=== PATIENT | female | born 1950 | race Caucasian/White ===

== ENCOUNTER → 2018-04-16 | Outpatient (CLI) | payer BC ==
[~2018-04-16] MED LIST: BONIVA150 MG PO; LISINOPRIL10 MG PO; SIMVASTATIN20 MG PO
--- NOTE | 2018-04-16 16:42 | Diagnostic Imaging Report ---
Exam: Lumbar spine complete History: Low back pain Comparison: None. Findings: There are 5 nonrib-bearing lumbar-type vertebral bodies. No acute, displaced fracture or subluxation. Soft tissue, ligamentous, and spinal cord abnormalities cannot be excluded on the basis of plain radiography. No pars interarticularis defects are identified on the oblique radiographs. There is advanced multilevel disc space narrowing, marginal osteophytosis, and endplate sclerosis most notably affecting L1-L2 and L5-S1. Bilateral facet arthropathy at L5-S1 is also noted. Sacroiliac joints are well-maintained. Impression: No acute osseous abnormality. Multilevel degenerative disc disease and facet arthropathy disproportionately effecting L1-L2 and L5-S1. Signed by: Dr. Faheem Dewey M.D. on 04/16/2018 4:39 PM
--- NOTE | 2018-04-16 16:47 | Diagnostic Imaging Report ---
Exam: Cervical spine, complete History: Neck pain Comparison: MRI cervical spine 07/28/2016 Findings: Cervical spine is visualized from the skull base to the bottom of T1 on the lateral radiograph. No acute, displaced fracture or subluxation. Soft tissue, ligamentous, and spinal cord abnormalities cannot be excluded on the basis of plain radiography. There is advanced disc space narrowing, marginal disc osteophyte complexes, and endplate sclerosis a affecting C5-C6 and C6-C7 with reversal of the normal cervical lordosis, grossly unchanged relative to prior MRI. Right-sided foraminal narrowing at C3-4 and left-sided foraminal narrowing at C3-4 is noted on the oblique radiographs. Prevertebral soft tissues are of normal thickness. Mild degenerative changes at the atlantoaxial interval. Impression: No acute osseous abnormality. Soft tissue, ligamentous, and spinal cord abnormalities cannot be excluded on the basis of plain radiography. Degenerative disc disease and degenerative uncovertebral arthrosis at multiple levels of the cervical spine as described above. Findings appear similar to that described on comparison MRI 07/28/2016. Signed by: Dr. Faheem Dewey M.D. on 04/16/2018 4:43 PM
== END ==
LOC: RAD 15:39
DX: M54.2 Cervicalgia (principal); M54.5 Low back pain
CPT/HCPCS: 72050; 72110

== ENCOUNTER → 2018-05-14 | Outpatient (CLI) | payer BC ==
--- NOTE | 2018-05-14 15:30 | Diagnostic Imaging Report ---
EXAMINATION: Head CT HISTORY: Headache for the last 3 months COMPARISON: None available TECHNIQUE: Multidetector axial images were obtained without contrast from the foramen magnum to the vertex . The images were reconstructed using brain and bone algorithms. Thin section brain images were reformatted into coronal and sagittal planes. Intravenous contrast: None. Image quality: Motion/streaking artifact limits the evaluation of the skull base and posterior cranial fossa. Dose modulation, iterative reconstruction, and/or weight based adjustment of the mA/kV was utilized to reduce the radiation dose to as low as reasonably achievable. FINDINGS: Parenchyma: 1. Scattered and moderate confluence within the right matter hypodensities, most likely nonspecific chronic microvascular ischemic changes. 2. No mass or hemorrhage. No CT evidence of acute territorial vascular insult. Extra-axial spaces:No abnormal density. No extra-axial fluid collections Brain volume: Normal for age. Ventricles: No hydrocephalus or displacement. Arteries: No density suggestive of thrombus. Dural sinuses: No abnormal density. Extra-axial spaces: No abnormal density. Foramen magnum: No mass, Chiari malformation, or basilar invagination. Sella: No obvious mass. Paranasal/mastoid sinuses: Imaged portions unremarkable. Skull/Scalp: No lytic or blastic lesions. No fractures. IMPRESSION: Moderate chronic microvascular ischemic changes. Otherwise no intracranial abnormalities. Signed by: Dr. Suzy Chaves M.D. on 05/14/2018 3:27 PM
== END ==
LOC: CT 14:19
DX: R51 Headache (principal)
CPT/HCPCS: 70450

== ENCOUNTER → 2019-05-16 | Day surgery (SDC) | payer BC ==
[2019-05-09 13:02] LABS: BASOPHILS # (AUTO) 0.1 (0.0-0.1); BASOPHILS % 1.1 % (0.0-1.0); EOSINOPHILS # (AUTO) 0.3 (0.0-0.4); HEMATOCRIT 36.4 % (34.2-44.1); HEMOGLOBIN 11.3 g/dL (12.0-16.0); LYMPHOCYTES # (AUTO) 2.9 (1.0-3.2); LYMPHOCYTES % 47.2 % (18.0-39.1); MEAN CORPUSCULAR VOLUME 93.3 fL (81-99); MONOCYTES # (AUTO) 0.6 (0.2-0.8); MONOCYTES % 9.4 % (4.4-11.3); NEUTROPHILS # (AUTO) 2.3 (2.1-6.9); NEUTROPHILS % 37.1 % (38.7-80.0); PLATELET COUNT 231 x10e3/uL (140-360); RED CELL DISTRIBUTION WIDTH 12.5 % (11.7-14.4)
[~2019-05-16] MED LIST changes: +BIOTIN1 MG PO; +CALCIUM PO; +CBD TOP; +FENTANYL CITRATE/PF 100MCG/2 ML INJ ONE; +GLUCAGON FOR INJ 1 MG VIAL ONE; +HYOSCYAMINE 0.125 MG TAB ONE; +METHIMAZOLE5 MG PO; +MIDAZOLAM HCL 2 MG/2 ML VIAL ONE; +MULTI-VITAMIN1 EACH PO; +PROPOFOL IV EMULSION 10 MG/ML 50 ML VIAL ONE; +SM NATURAL BAL100 MG PO; +VIT C PO; +VIT D PO
--- OUTSIDE RECORDS SUMMARY | 2019-05-16 07:44 | XMS REPORT ---
Author Author [facility] Address Unknown Phone Unavailable Care Team Providers Care Grader Meat Name Role Phone CHRIS CORONA Unavailable Unavailable Problems This patient has no known problems. Allergies, Adverse Reactions, Alerts This patient has no known allergies or adverse reactions. Medications This patient has no known medications. Results Test Description Test Time Test Comments Text Results Atomic Results Result Comments SCR MAMM BILATERAL SABINA CAD DIGITAL 2019-03-28 13:05:31 - SCR MAMM BILATERAL SABINA CAD DIGITALBILATERAL DIGITAL SCREENING MAMMOGRAM 3D/2D WITH CAD: 03/28/2019CLINICAL: Asymptomatic. Digital breast tomosynthesis was performed in addition to routine CC and MLO views. Current mammographic images were evaluated by either a [employer] M-Vu or a [employer] ImageChecker CAD (computer aided detection system). Comparison is made to exams dated 12/18/2017 mammogram, 10/20 mammogram, and 09/23/2015 mammogram - [facility]. There are scattered fibroglandular tissues in both breasts. There are benign calcifications in both breasts. No suspicious mass, architectural distortion, malignant type calcification, or lymph node abnormality detected. Breast architecture is stable compared to prior exams.IMPRESSION: BENIGNThere is no mammographic evidence of malignancy. Resume annual screening mammography in one year. Fatmata castellanos/seun:03/28/2019 13:05:31 Automatic Bow Maker Machine Tender: Racquel OLIVAREZ, [facility] sent: BIRADS 1-2 Normal Mammogram BI-RADS: [address] BRAIN WO 2018-05-14 15:25:[address] [address] Patient Name: MELIDA TORRES MR #: [id number] : 1950 Age/Sex: 68/F Req #: [id number] [facility] Physician: Ordered by: CHRIS CORONA MD Report #: [id number] Location: CT Room/Bed: Procedure: [id number] CT/CT BRAIN WO Exam Date: 05/14/18 Exam Time: 1510 REPORT STATUS: Signed EXAMINATION: Head CT HISTORY: Headache for the last 3 months COMPARISON: None available TECHNIQUE: Multidetector axial images were obtained without contrast from the foramen magnum to the vertex . The images were reconstructed using brain and bone algorithms. Thin section brain images were reformatted into coronal and sagittal planes. Intravenous contrast: None. Image quality: Motion/streaking artifact limits the evaluation of the skull base and posterior cranial fossa. Dose modulation, iterative reconstruction, and/or weight based adjustment of the mA/kV was utilized to reduce the radiation dose to as low as reasonably achievable. FINDINGS: Parenchyma: 1. Scattered and moderate confluence within the right matter hypodensities, most likely nonspecific chronic microvascular ischemic changes. 2. No mass or hemorrhage. No CT evidence of acute territorial vascular insult. Extra-axial spaces:No abnormal density. No extra-axial fluid collections Brain volume: Normal for age. Ventricles: No hydrocephalus or displacement. Arteries: No density suggestive of thrombus. Dural sinuses: No abnormal density. Extra-axial spaces: No abnormal density. Foramen magnum: No mass, Chiari malformation, or basilar invagination. Sella: No obvious mass. Paranasal/mastoid sinuses: Imaged portions unremarkable. Skull/Scalp: No lytic or blastic lesions. No fractures. IMPRESSION: Moderate chronic microvascular ischemic changes. Otherwise no intracranial abnormalities. Signed by: Dr. Suzy Chaves M.D. on 05/14/2018 3:27 PM Dictated By: SUZY CHAVES MD 1527 Transcribed By: PRIMITIVO on 05/14/18 1527 COPY TO: CHRIS CORONA MD CERVICAL SPINE 4 OR 5 VIEWS 2018-04-16 16:39:00 [place] [id number] [place] [id number] Patient Name: MELIDA TORRES MR #: [id number] : 1950 Age/Sex: 68/F Req #: [id number] Adm Physician: Ordered by: CHRIS CORONA MD Report #: [id number] Location: [facility] Room/Bed: Procedure: [id number] DX/CERVICAL SPINE 4 OR 5 VIEWS Exam Date: 04/16/18 Exam Time: 1600 REPORT STATUS: Signed Exam: Cervical spine, complete History: Neck pain Comparison: MRI cervical spine 07/28/2016 Findings: Cervical spine is visualized from the skull base to the bottom of T1 on the lateral radiograph. No acute, displaced fracture or subluxation. Soft tissue, ligamentous, and spinal cord abnormalities cannot be excluded on the basis of plain radiography. There is advanced disc space narrowing, marginal disc osteophyte complexes, and endplate sclerosis a affecting C5-C6 and C6-C7 with reversal of the normal cervical lordosis, grossly unchanged relative to prior MRI. Right-sided foraminal narrowing at C3-4 and left-sided foraminal narrowing at C3-4 is noted on the oblique radiographs. Prevertebral soft tissues are of normal thickness. Mild degenerative changes at the atlantoaxial interval. Impression: No acute osseous abnormality. Soft tissue, ligamentous, and spinal cord abnormalities cannot be excluded on the basis of plain radiography. Degenerative disc disease and degenerative uncovertebral arthrosis at multiple levels of the cervical spine as described above. Findings appear similar to that described on comparison MRI 07/28/2016. Signed by: Dr. Madison Hahn M.D. on 04/16/2018 4:43 PM Dictated By: MADISON HAHN MD 42 Transcribed By: PRIMITIVO on 04/16/181642 COPY TO: CHRIS CORONA MD SP LUMBAR, COMPLETE MIN 4VW 2018-04-16 16:36:00 [place] [address] Patient Name: MELIDA TORRES MR #: [id number] : 1950 Age/Sex: 68/F Req #: [id number] [facility] Physician: Ordered by: CHRIS CORONA MD Report #: [id number] Location: [facility] Room/Bed: Procedure: [id number] DX/SP LUMBAR, COMPLETE MIN 4VW Exam Date: 04/16/18 Exam Time: 1600 REPORT STATUS: Signed Exam: Lumbar spine complete History: Low back pain Comparison: None. Findings: There are 5 nonrib-bearing lumbar-type vertebral bodies. No acute, displaced fracture or subluxation. Soft tissue, ligamentous, and spinal cord abnormalities cannot be excluded on the basis of plain radiography. No pars interarticularis defects are identified on the oblique radiographs. There is advanced multilevel disc space narrowing, marginal osteophytosis, and endplate sclerosis most notably affecting L1-L2 and L5-S1. Bilateral facet arthropathy at L5-S1 is also noted. Sacroiliac joints are well-maintained. Impression: No acute osseous abnormality. Multilevel degenerative disc disease and facet arthropathy disproportionately effecting L1-L2 and L5-S1. Signed by: Dr. Madison Hahn M.D. on 04/16/2018 4:39 PM Dictated By: MADISON HAHN MD 163 Transcribed By: PRIMITIVO on 04/16/18 163 COPY TO: CHRIS CORONA MD CHEST 2 VIEWS [place] [address] Patient Name: MELIDA TORRES MR #: [id number] : 1950 Age/Sex: 66/F Req #: [id number] Adm Physician: Ordered by: CHRIS CORONA MD Report #: [id number] Location: [facility] Room/Bed: Procedure: [id number] DX/CHEST 2 VIEWS Exam Date: 03/23/17 Exam Time: 1610 REPORT STATUS: Signed PROCEDURE: Frontal and lateral views of the chest. COMPARISON: None. INDICATIONS: PRE OPERATIVE CHEST XRAY FOR HYSTERECTOMY FINDINGS: Lines/tubes: None. Lungs: The lungs are well inflated and clear. There is no evidence of pneumonia or pulmonary edema. Pleura: There is no pleural effusion or pneumothorax. Heart and mediastinum: Heart size is normal. Mild atherosclerotic calcification of the thoracic aorta. Bones: No acute bony abnormality. Severe disc space narrowing at what appears to be the L1-L2 level. IMPRESSION: 1. No acute cardiopulmonary disease. Dictated by: Janeth Figueroa M.D. on 03/23/2017 at 17:41 Electronically approved by: Janeth Figueroa M.D. on 03/23/2017 at 17:41 Dictated By: JANETH FIGUEROA MD 1741 Transcribed By: SHAWN on 03/23/17 3731 COPY TO: CHRIS CORONA MD
[2019-05-16 11:15] VITALS: BP 129/68
--- NOTE | 2019-05-16 17:42 | Operative Report ---
DATE OF PROCEDURE: 05/16/2019 SURGEON: Herb Gautam MD PROCEDURE: Colonoscopy with biopsies. INDICATION FOR COLONOSCOPY: Surveillance colonoscopy, personal history of colon polyps, fecal urgency. MEDICATIONS: The patient was done under MAC, please see anesthesiologist's note. PROCEDURE IN DETAIL: With the patient in left lateral decubitus position, a flexible fiberoptic Olympus colonoscope was inserted into the rectum with ease and advanced all the way to the cecum. It was then withdrawn slowly. Mucosa overlying the cecum, ascending colon and transverse colon appeared to be within normal limits. Large amount of retained stool was noted in the descending colon. The mucosa overlying the sigmoid and the rectum revealed some patchy mild inflammatory changes and biopsies were obtained. A single diverticulum was noted in the sigmoid colon. The scope was then retroflexed into the distal rectum and the area around the dentate line appeared to be within normal limits. The scope was then straightened out, it was subsequently withdrawn. The patient tolerated the procedure well. IMPRESSION: 1. Suboptimal prep, primarily descending colon. 2. Diverticulosis, minimal sigmoid colon. 3. Proctosigmoiditis, mild, biopsies obtained. PLAN: Follow up histology. Initiate VSL#3 p.o. b.i.d. and Bentyl 20 mg one p.o. t.i.d. The patient will need a repeat colonoscopy after a better prep. Herb Gautam [place] [facility] [place][id number] cc: Kenneth Gautam MD
== END | disposition home or self-care (01) ==
LOC: OR 07:42
PROVIDERS: ATTEND Internal Medicine Gastroenterology
DX: Z09 Encounter for follow-up examination after completed treatment for conditions other than malignant neoplasm (principal); Z86.010 Personal history of colon polyps; K57.30 Diverticulosis of large intestine without perforation or abscess without bleeding; K63.89 Other specified diseases of intestine; K59.00 Constipation, unspecified; I10 Essential (primary) hypertension; E03.9 Hypothyroidism, unspecified; Z01.810 Encounter for preprocedural cardiovascular examination; Z01.812 Encounter for preprocedural laboratory examination
CPT/HCPCS: 36415; 45380; 85025; 93005; J1610; J2250; J2704; J3010; 45378

== ENCOUNTER → 2021-01-21 | Day surgery (SDC) | payer BC ==
[2021-01-14 13:02] LABS: BASOPHILS # (AUTO) 0.1 (0.0-0.1); BASOPHILS % 1.5 % (0.0-1.0); EOSINOPHILS # (AUTO) 0.2 (0.0-0.4); EOSINOPHILS % 3.6 % (0.0-6.0); HEMATOCRIT 37.4 % (34.2-44.1); HEMOGLOBIN 11.7 g/dL (12.0-16.0); LYMPHOCYTES # (AUTO) 2.7 (1.0-3.2); LYMPHOCYTES % 43.3 % (18.0-39.1); MEAN CORPUSCULAR HEMOGLOBIN 28.8 pg (28-32); MEAN CORPUSCULAR HGB CONC 31.3 g/dL (31-35); MEAN CORPUSCULAR VOLUME 92.1 fL (81-99); MONOCYTES # (AUTO) 0.5 (0.2-0.8); MONOCYTES % 7.6 % (4.4-11.3); NEUTROPHILS # (AUTO) 2.7 (2.1-6.9); NEUTROPHILS % 43.8 % (38.7-80.0); PLATELET COUNT 222 x10e3/uL (140-360); RED BLOOD COUNT 4.06 x10e6/uL (3.6-5.1); RED CELL DISTRIBUTION WIDTH 12.1 % (11.7-14.4)
[~2021-01-21] MED LIST changes: +CELEBREX200 MG PO; -GLUCAGON FOR INJ 1 MG VIAL ONE; -HYOSCYAMINE 0.125 MG TAB ONE; +LIDOCAINE HCL 2% LOCAL INJ 5 ML SDV VIAL INJ ONE; +METOCLOPRAMIDE HCL 10 MG/2ML VIAL ONE; +PROPOFOL IV EMULSION 10 MG/ML 20 ML VIAL ONE; -PROPOFOL IV EMULSION 10 MG/ML 50 ML VIAL ONE
[2021-01-21 12:05] VITALS: BP 99/53
[2021-01-21 12:36] LABS: WBC,FECAL (FECAL LACTOFERRIN) NEGATIVE (NEGATIVE)
[2021-01-21 12:37] LABS: ALBUMIN 3.5 g/dL (3.5-5.0); ALBUMIN/GLOBULIN RATIO 1.3 (0.8-2.0); ANION GAP 11.1 mmol/L (8-16); CALCIUM 8.5 mg/dL (8.4-10.2); CREATININE, SERUM 0.93 mg/dL (0.57-1.11); POTASSIUM 4.1 mmol/L (3.5-5.1)
[2021-01-21 15:31] LABS: C DIFFICILE TOXIN A&B AMP PROB NEGATIVE (NEGATIVE)
== END | disposition home or self-care (01) ==
LOC: OR 07:15
PROVIDERS: ATTEND Internal Medicine Gastroenterology
DX: K29.70 Gastritis, unspecified, without bleeding (principal); D12.2 Benign neoplasm of ascending colon; D12.3 Benign neoplasm of transverse colon; K29.80 Duodenitis without bleeding; K20.90 Esophagitis, unspecified without bleeding; K31.89 Other diseases of stomach and duodenum; K21.9 Gastro-esophageal reflux disease without esophagitis; K57.30 Diverticulosis of large intestine without perforation or abscess without bleeding; K63.89 Other specified diseases of intestine; K64.8 Other hemorrhoids; I10 Essential (primary) hypertension; E03.9 Hypothyroidism, unspecified; F41.9 Anxiety disorder, unspecified; Z01.810 Encounter for preprocedural cardiovascular examination; Z01.812 Encounter for preprocedural laboratory examination; Z68.26 Body mass index [BMI] 26.0-26.9, adult
CPT/HCPCS: 36415 ×2; 43239; 45380; 80053; 83630; 83993; 85025; 87045; 87177; 87328; 87493; 93005; C9113; J2001; J2250; J2704; J2765; J3010

== ENCOUNTER → 2021-02-01 | Outpatient (CLI) | payer BC ==
[~2021-02-01] MED LIST changes: -FENTANYL CITRATE/PF 100MCG/2 ML INJ ONE; -LIDOCAINE HCL 2% LOCAL INJ 5 ML SDV VIAL INJ ONE; -METOCLOPRAMIDE HCL 10 MG/2ML VIAL ONE; -MIDAZOLAM HCL 2 MG/2 ML VIAL ONE; -PROPOFOL IV EMULSION 10 MG/ML 20 ML VIAL ONE
== END ==
LOC: US 09:00
PROVIDERS: ATTEND Internal Medicine Gastroenterology
DX: I85.00 Esophageal varices without bleeding (principal)
CPT/HCPCS: 76705

== ENCOUNTER → 2021-07-16 | Outpatient (CLI) | payer BC ==
[~2021-07-16] MED LIST changes: +IOPAMIDOL 370 MG/ML 200 ML INFUS..BTL INJ ONE; +SODIUM CHLORIDE 0.9% 50ML 50 ML ONE
[2021-07-16 09:12] LABS: CREATININE, SERUM 0.76 mg/dL (0.57-1.11)
== END ==
LOC: CT 07:40
PROVIDERS: ATTEND Internal Medicine Gastroenterology
DX: R10.84 Generalized abdominal pain (principal)
CPT/HCPCS: 36415; 74177; 82565; 84520; Q9967

== ENCOUNTER → 2021-08-25 | Day surgery (SDC) | payer BC ==
[2021-08-23 10:14] VITALS: BP 122/55
[2021-08-24 10:30] LABS: BASOPHILS # (AUTO) 0.1 (0.0-0.1); BASOPHILS % 1.1 % (0.0-1.0); EOSINOPHILS # (AUTO) 0.4 (0.0-0.4); EOSINOPHILS % 5.7 % (0.0-6.0); HEMATOCRIT 38.2 % (34.2-44.1); HEMOGLOBIN 11.7 g/dL (12.0-16.0); LYMPHOCYTES # (AUTO) 2.3 (1.0-3.2); LYMPHOCYTES % 37.8 % (18.0-39.1); MEAN CORPUSCULAR HEMOGLOBIN 29.2 pg (28-32); MEAN CORPUSCULAR HGB CONC 30.6 g/dL (31-35); MEAN CORPUSCULAR VOLUME 95.3 fL (81-99); MONOCYTES # (AUTO) 0.6 (0.2-0.8); MONOCYTES % 9.8 % (4.4-11.3); NEUTROPHILS # (AUTO) 2.8 (2.1-6.9); NEUTROPHILS % 45.4 % (38.7-80.0); PLATELET COUNT 231 x10e3/uL (140-360); RED BLOOD COUNT 4.01 x10e6/uL (3.6-5.1); RED CELL DISTRIBUTION WIDTH 12.1 % (11.7-14.4)
[2021-08-24 10:44] LABS: INR 0.9; PROTHROMBIN TIME 12.8 seconds (11.9-14.5)
[2021-08-24 10:45] LABS: PARTIAL THROMBOPLASTIN TIME 27.4 seconds (23.8-35.5)
[2021-08-24 10:57] LABS: ALBUMIN 3.7 g/dL (3.5-5.0); ALBUMIN/GLOBULIN RATIO 1.1 (0.8-2.0); ANION GAP 12.6 mmol/L (8-16); CALCIUM 9.4 mg/dL (8.4-10.2); CREATININE, SERUM 0.7 mg/dL (0.57-1.11); POTASSIUM 4.6 mmol/L (3.5-5.1)
[~2021-08-25] VITALS: Ht 160 cm; Wt 66.2 kg
[2021-08-25] VITALS (7 sets, daily range): BP systolic 101–122; BP diastolic 51–69
[~2021-08-25] MED LIST changes: +ASPIRIN 325 MG TAB ONE; +FENTANYL CITRATE/PF 100MCG/2 ML INJ ONE; +HEPARIN SOD/SOD CHLORIDE 2,000 ML ONE; +LIDOCAINE HCL 2% LOCAL 20 ML VIAL ONE; +MIDAZOLAM HCL 2 MG/2 ML VIAL ONE; +PANTOPRAZOLE SO40 MG PO; +SODIUM CHLORIDE 0.9% 1000ML 1,000 ML ONE; -SODIUM CHLORIDE 0.9% 50ML 50 ML ONE; +VERAPAMIL HCL 2.5 MG/ML 2 ML VIAL ONE
== END | disposition home or self-care (01) ==
LOC: CATH LAB 07:44
PROVIDERS: ATTEND Internal Medicine Cardiovascular Disease
DX: I25.10 Atherosclerotic heart disease of native coronary artery without angina pectoris (principal); R94.39 Abnormal result of other cardiovascular function study; R00.2 Palpitations; I87.2 Venous insufficiency (chronic) (peripheral); I10 Essential (primary) hypertension; E78.5 Hyperlipidemia, unspecified; R01.1 Cardiac murmur, unspecified; R93.1 Abnormal findings on diagnostic imaging of heart and coronary circulation; Z11.52 Encounter for screening for COVID-19; Z79.899 Other long term (current) drug therapy; Z82.49 Family history of ischemic heart disease and other diseases of the circulatory system
CPT/HCPCS: 36415; 80053; 85025; 85610; 85730; 93458; 93571; C1769 ×2; C1887; J2001; J2250; J3010; J7030; Q9967; U0002; 99152

== ENCOUNTER → 2021-11-22 | Outpatient (CLI) | payer BC ==
[~2021-11-22] MED LIST changes: -ASPIRIN 325 MG TAB ONE; -FENTANYL CITRATE/PF 100MCG/2 ML INJ ONE; -HEPARIN SOD/SOD CHLORIDE 2,000 ML ONE; -IOPAMIDOL 370 MG/ML 200 ML INFUS..BTL INJ ONE; -LIDOCAINE HCL 2% LOCAL 20 ML VIAL ONE; -MIDAZOLAM HCL 2 MG/2 ML VIAL ONE; -SODIUM CHLORIDE 0.9% 1000ML 1,000 ML ONE; -VERAPAMIL HCL 2.5 MG/ML 2 ML VIAL ONE
== END ==
LOC: NM 08:50
PROVIDERS: ATTEND Internal Medicine Gastroenterology
DX: R10.9 Unspecified abdominal pain (principal); K76.0 Fatty (change of) liver, not elsewhere classified; R14.2 Eructation
CPT/HCPCS: 78227; A9537

== ENCOUNTER → 2024-05-13 | Day surgery (SDC) | payer BC ==
[2024-04-29 12:48] LABS: BASOPHILS # (AUTO) 0.1 (0.0-0.1); EOSINOPHILS # (AUTO) 0.3 (0.0-0.4); EOSINOPHILS % 4.5 % (0.0-6.0); HEMATOCRIT 38.2 % (34.2-44.1); HEMOGLOBIN 11.8 g/dL (12.0-16.0); LYMPHOCYTES # (AUTO) 2.6 (1.0-3.2); LYMPHOCYTES % 38.6 % (18.0-39.1); MEAN CORPUSCULAR HEMOGLOBIN 29.7 pg (28-32); MEAN CORPUSCULAR HGB CONC 30.9 g/dL (31-35); MEAN CORPUSCULAR VOLUME 96.2 fL (81-99); MONOCYTES # (AUTO) 0.6 (0.2-0.8); MONOCYTES % 8.2 % (4.4-11.3); NEUTROPHILS # (AUTO) 3.2 (2.1-6.9); NEUTROPHILS % 47.4 % (38.7-80.0); PLATELET COUNT 207 x10e3/uL (140-360); RED BLOOD COUNT 3.97 x10e6/uL (3.6-5.1); RED CELL DISTRIBUTION WIDTH 12.2 % (11.7-14.4); WHITE BLOOD COUNT 6.82 x10e3/uL (4.8-10.8)
[~2024-05-13] MED LIST changes: +METOPROLOL SUCC25 MG PO
[2024-05-13] MEDS: LACTATED RINGER'S 1,000 ML ONE (07:27)
[2024-05-13 10:05] VITALS: TEMP 96.8
[2024-05-13 10:30] VITALS: BP 156/77; PULSE 73; RESP 18; O2SAT 99
[2024-05-16 12:13] LABS: ENDOMYSIAL ANTIBODIES, IGA Negative (Negative)
[2024-05-16 15:29] LABS: IMMUNOGLOBULIN A 214 mg/dL (64-422); TISSUE TRANSGLUTAMINASE IGA AB <2 U/mL (0-3)
== END | disposition home or self-care (01) ==
LOC: OR 06:44
PROVIDERS: ATTEND Internal Medicine Gastroenterology
DX: K29.50 Unspecified chronic gastritis without bleeding (principal); D12.3 Benign neoplasm of transverse colon; K31.89 Other diseases of stomach and duodenum; I85.00 Esophageal varices without bleeding; K20.90 Esophagitis, unspecified without bleeding; K57.30 Diverticulosis of large intestine without perforation or abscess without bleeding; K64.8 Other hemorrhoids; I10 Essential (primary) hypertension; G89.29 Other chronic pain; M19.90 Unspecified osteoarthritis, unspecified site; E03.9 Hypothyroidism, unspecified; Z01.810 Encounter for preprocedural cardiovascular examination; Z01.812 Encounter for preprocedural laboratory examination; Z79.899 Other long term (current) drug therapy
CPT/HCPCS: 36415; 43239; 45385; 82784; 83516; 85025; 86256; 93005; J2470; J7121; 45378